=== PATIENT | female | born 1970 | race Two or more races ===

== ENCOUNTER 2024-12-20 17:52 | Emergency (ER) | payer SELFPAY | END 2024-12-20 18:22 | disposition left against medical advice (07) | LOC: MW.ED 17:52 | DX: Z53.21 Procedure and treatment not carried out due to patient leaving prior to being seen by health care provider (principal) ==

== ENCOUNTER 2024-12-21 06:10 | Emergency (ER) | payer BC ==
[2024-12-21] MEDS: Meloxicam 7.5 MG Tab PO STA (06:34)
[2024-12-21] MEDS: Acetaminophen 325 MG Tab PO ONE (06:35)
== END 2024-12-21 07:37 | disposition home or self-care (01) ==
LOC: MW.ED 06:10
DX: S83.92XA Sprain of unspecified site of left knee, initial encounter (principal); Z79.890 Hormone replacement therapy; Z79.899 Other long term (current) drug therapy; X50.0XXA Overexertion from strenuous movement or load, initial encounter; Y93.89 Activity, other specified
CPT/HCPCS: 73560-26-LT; 73560-LT; 99283; A9270-GY